=== PATIENT | female | born 1980 | race Caucasian/White ===

== ENCOUNTER 2019-05-26 02:15 | Inpatient (IN) | payer OTHER ==
[2019-05-26] MEDS ORDERED: MAGNESIUM 4GM/H20 - 4 GM/100 ML IVPB IVPB ONE (02:56)
[2019-05-26] MEDS ORDERED: LABETALOL HCL 5 MG/1 ML (100MG/20 ML VIAL) ONE ×2 (02:56→02:57)
[2019-05-26] MEDS ORDERED: MAGNESIUM SULFATE 20GM/500ML - 20 GM/500 ML INFUS.BAG ONE ×2 (02:56→18:09)
[2019-05-26] MEDS ORDERED: LABETALOL HCL 5 MG/1 ML (100MG/20 ML VIAL) IVPB ONE (03:30)
[2019-05-26 03:35] LABS: RETICULOCYTES 2.44 % (0.5-1.5)
[2019-05-26 03:37] LABS: BASO % 0.3 % (0-2.0); EOS % 0.3 % (0-4.5); HEMATOCRIT 31.7 % (32.4-45.2); HEMOGLOBIN 10.4 GM/dL (10.7-15.3); LYMPH % 23.5 % (8-40); MCH 28.3 pg (25.7-33.7); MCHC 32.9 g/dl (32.0-36.0); MEAN CELL VOLUME 85.9 fl (80-96); MEAN PLT VOLUME 10.3 fl (7.5-11.1); MONO % 5.8 % (3.8-10.2); NEUT % 70.1 % (42.8-82.8); PLATELET COUNT 267 K/MM3 (134-434); RBC 3.69 M/mm3 (3.60-5.2); RDW 15.1 % (11.6-15.6); WHITE BLOOD COUNT 11.5 K/mm3 (4.0-10.0)
[2019-05-26] MEDS ORDERED: NIFEdipine 10 MG CAPSULE (FP) PO ONE (03:40)
[2019-05-26] MEDS ORDERED: NIFEdipine 10 MG CAPSULE (FP) ONE (03:41)
[2019-05-26 03:55] LABS: INR 0.87 (0.83-1.09); PROTHROMBIN TIME (PATIENT) 10.2 SEC (9.7-13.0)
[2019-05-26 03:57] LABS: ACTIVATED PTT 22.6 SECONDS (25.2-36.5)
[2019-05-26 04:03] LABS: BLOOD UREA NITROGEN 9.3 mg/dL (7-18); CALCIUM 8.4 mg/dL (8.5-10.1); CREATININE 0.6 mg/dL (0.55-1.3); POTASSIUM 4.2 mmol/L (3.5-5.1); URIC ACID 5.7 mg/dL (2.6-7.2)
[2019-05-26 04:09] VITALS: BMI 41.8
[2019-05-26] MEDS ORDERED: PROPOFOL 20 ML ONE (04:10)
[2019-05-26] MEDS ORDERED: morphine SULFATE/PF 0.5 MG/ML (2cc Syringe - QUVA) ONE (04:10)
[2019-05-26] MEDS ORDERED: SUCCINYLCHOLINE CHLORIDE 200 MG/10 ML SYRINGE ONE (04:10)
--- NOTE | 2019-05-26 04:14 | HP ---
Past Medical History - Primary Care Physician PCP:: Aren Vega - Admission Chief Complaint: 38 weeks, severe PIH, ROM, meconium , AMA History Source: Patient Limitations to Obtaining History: No Limitations - Past Medical History ...: 3 ...Para: 2 Heme/Onc: Yes: Anemia - Past Surgical History Hx Myomectomy: No Hx Transabdominal Cerclage: No - Smoking History Have you smoked in the past 12 months: No - Alcohol/Substance Use Hx Alcohol Use: No - Social History Usual Living Arrangement: Yes: With Significant Other History of Recent Travel: No Review of Systems - Review of Systems Constitutional: reports: No Symptoms Eyes: reports: No Symptoms HENT: reports: No Symptoms Neck: reports: No Symptoms Cardiovascular: reports: No Symptoms Gastrointestinal: reports: Abdominal Pain Genitourinary: reports: No Symptoms Breasts: reports: No Symptoms Reported Musculoskeletal: reports: Back Pain Integumentary: reports: No Symptoms Neurological: reports: No Symptoms Endocrine: reports: No Symptoms Hematology/Lymphatic: reports: No Symptoms Psychiatric: reports: No Symptoms Physical Exam - Maternity Constitutional: Yes: Obese Eyes: Yes: WNL HENT: Yes: WNL Neck: Yes: WNL Cardiovascular: Yes: WNL, Regular Rate and Rhythm Lungs: Clear to auscultation Breast(s): Yes: WNL - Abdominal Exam/OB Fundal Height: 38 Number of Fetuses: Single Presentation: Vertex Contractions: Yes Regularity: Irregular Intensity: Moderate Monitor Mode: External Heart Rate (range): 150 Heart Rate Location: [facility] Category: II Accelerations: Non-Uniform Decelerations: Variable - Vaginal Exam/OB Vaginal Bleediing: No Speculum Exam: No Dilatation (cm): 2 cm Effacement (%): 50 Amniotic Membrane Status: Ruptured Nitrazine Test: Positive Amniotic Fluid: Yes: Meconium Stained Meconium: Moderate Presentation: Vertex/Position Station: -3 - Physical Exam Musculoskeletal: Yes: Back Pain Extremities: Yes: WNL Edema: LLE: 2+, RLE: 2+ Integumentary: Yes: WNL Deep Tendon Reflex Grade: Normal but brisk +3 ...Motor Strength: WNL Psychiatric: Yes: WNL - Labs Lab Results: CBC, BMP 05/26/19 03:05 05/26/19 03:05 Hemorrhage Risk Assessment - Risk Factors Medium Risk Factors: Yes: Obesity (BMI >40) Risk Score: 1 Risk Level: Medium Risk Problem List - Problems (1) with 38 completed weeks gestation Code(s): Z3A.38 - 38 WEEKS GESTATION OF (2) induced hypertension, antepartum Code(s): O13.9 - GESTATIONAL HTN W/O SIGNIFICANT PROTEINURIA, UNSP TRIMESTER (3) Meconium in amniotic fluid Code(s): P96.83 - MECONIUM STAINING (4) Advanced maternal age (AMA) in Code(s): CPP2887 - (5) Obesity Code(s): E66.9 - OBESITY, UNSPECIFIED Qualifiers: Obesity type: due to excess calories Assessment/Plan admit BP monitoring q 15 min MGso4 labeatalol iv follow by Procardia 30 mg po iv hydraation theodore monitor I/o c/s after bp stable, risks of c/s and ulternatives explained
[2019-05-26] MEDS ORDERED: ELECTROLYTE-148 SOLN 1,000 ML IV SCH (04:15)
[2019-05-26] MEDS ORDERED: DEXTROSE 5%-LACTATED RINGERS 1,000 ML IV SCH ×2 (04:15→05:45)
[2019-05-26] MEDS ORDERED: OXYTOCIN 20 UNITS in 0.9% NS 20 UNIT/1,000 ML INFUS.BAG IV ONE ×3 (04:15→20:47)
[2019-05-26 04:35] LABS: MAGNESIUM 1.7 mg/dL (1.8-2.4)
--- NOTE | 2019-05-26 05:17 | PN ---
Progress Note (short form) - Note Progress Note: Called to attended C/S for this 38yrs old mother who presented to Dr with ROM/ MSAF & Elevated BPs- PIH Mom received- Labetalol/ Nifidipine Maternal Labs - NA Infant delivered- MSAF- cried soon after, suctioned/ dried Cord3V, 9/9 Infant'S PE: Infant clinically active/ alert with good color & Perfusion. Normocephalic- AFOF B?L good air entry, S1-S2 ml, no murmur abd soft, - nl; female Ext FROM Good tone and activity. RNBC Watch for resp distress Encourage BF/ Bonding F/U Maternal Labs.
[2019-05-26 05:30] LABS: EPI CELLS 11.6 /HPF (0-5/HPF); HYALINE CASTS 47 /lpf (0-8); URINE APPEARANCE CLEAR; URINE BACTERIA 24.9 /hpf (NEGATIVE); URINE BILIRUBIN NEGATIVE (NEGATIVE); URINE COLOR YELLOW; URINE GLUCOSE (UA) NEGATIVE (NEGATIVE); URINE KETONE NEGATIVE (NEGATIVE); URINE LEUK ESTERASE NEGATIVE (NEGATIVE); URINE NITRITE NEGATIVE (NEGATIVE); URINE PROTEIN 3+ (NEGATIVE); URINE RBC 3 /hpf (0-4); URINE UROBILINOGEN 0.2 mg/dL (0.2-1.0); URINE WBC 3 /hpf (0-5)
[2019-05-26] MEDS ORDERED: BENZOCAINE 20% 57 GM BOTTLE TP PRN (05:35)
[2019-05-26] MEDS ORDERED: diphenhydrAMINE HCL 25 MG CAPSULE (FP) PO PRN (05:35)
[2019-05-26] MEDS ORDERED: METHYLERGONOVINE MALEATE 0.2 MG/1 ML AMP IM PRN (05:35)
[2019-05-26] MEDS ORDERED: oxyCODONE HCL 5 MG TABLET PO PRN (05:35)
[2019-05-26] MEDS ORDERED: IBUPROFEN 600 MG TABLET (FP) PO PRN (05:35)
[2019-05-26] MEDS ORDERED: IBUPROFEN 800 MG/8 ML IJ IVPB PRN (05:35)
[2019-05-26] MEDS ORDERED: BENZOCAINE 28 GM HEMORRHOIDAL OINTMENT PR PRN (05:35)
[2019-05-26] MEDS ORDERED: WITCH HAZEL 50% (TUCKS) 40 PAD/JAR PAD TP PRN (05:35)
[2019-05-26 05:44] LABS: COCAINE, UR NEGATIVE ng/ml (CUTOFF=300); METHADONE, UR NEGATIVE ng/ml (CUTOFF=300); OPIATES, URI NEGATIVE ng/ml (CUTOFF=300); PHENCYCLIDINE,URINE NEGATIVE ng/ml (CUTOFF=25); URINE AMPHETAMINES NEGATIVE ng/ml (CUTOFF=500); URINE BARBITURATES NEGATIVE ng/ml (CUTOFF=200); URINE BENZODIAZEPINES NEGATIVE ng/ml (CUTOFF=200)
[2019-05-26] MEDS: OXYTOCIN 20 UNITS in 0.9% NS 20 UNIT/1,000 ML INFUS.BAG IV SCH ×2 (05:45→11:23)
--- NOTE | 2019-05-26 05:47 | OP ---
Operative Note - Note: Operative Date: 05/26/19 Pre-Operative Diagnosis: 38 weeks, severe PIH , rom, meconium AF Operation: primaary LST c/s Findings: live baby girl , ROT, cord around neck once , mec AF , 12/14 Surgeon: Aren Vega Air Conditioning Mechanic: German Osman Anesthesiologist/DIPLOMA DENTAL ASSISTANT: Cesar Johnson Anesthesia: Spinal Estimated Blood Loss (mls): 500 Drains & Tubes with Location: theodore Drains, Volume Out (mls): 100 Blood Volume Replaced (mls): 0 Fluid Volume Replaced (mls): 1,500 Operative Report Dictated: Yes
[2019-05-26] MEDS: MAGNESIUM SULFATE 20GM/500ML - 20 GM/500 ML INFUS.BAG IV SCH ×3 (06:45→09:40)
[2019-05-26] MEDS ORDERED: ONDANSETRON 4 MG/2 ML VIAL ONE ×2 (07:27→13:15)
[2019-05-26] MEDS: ONDANSETRON 4 MG/2 ML VIAL IVPUSH PRN ×2 (07:34→13:20)
--- NOTE | 2019-05-26 08:58 | PN ---
Progress Note (short form) - Note Progress Note: 38F h/o severe pre-eclampsia on Mag POD#0 under spinal anesthesia with duramorph. Pt. seen and examined at bedside this am. Currently complaining of persistent, non productive cough with no associated fever. Pt. noted to have O2 sat of 90-95% on room air. Gen: AO*3, residual LE motor/sensory block from spinal, good strength in UE. CV: RRR Resp: Decreased inspiratory effort but otherwise clear to auscultation Abd: s/p with clean dressing in place. Etiology of hypoxia likely multifactorial: splinting secondary to pain from surgery, atelectasis, persistent URI with possible pneumonia and sedation from duramorph spinal. I would recommend that Ms Solis receive supplemental O2 via NC to maintain sat > 92% if needed and monitor continuous pulse oximetery. We will check a CXR to rule out pneumonia. If her oxygenation worsens please reconsult anesthesia.
[2019-05-26] MEDS: ACETAMINOPHEN 1000 MG/100 ML VIAL (NON FORMULARY) IVPB SCH ×3 (09:05→22:00)
[2019-05-26] MEDS ORDERED: ACETAMINOPHEN INJECTION 100 ML IVPB ONE ×3 (09:06→22:42)
[2019-05-26] MEDS ORDERED: LABETALOL HCL 200 MG TABLET (FP) ONE ×3 (09:38→22:42)
[2019-05-26] MEDS: LABETALOL HCL 200 MG TABLET (FP) PO SCH ×3 (09:40→22:00)
--- NOTE | 2019-05-26 09:55 | CONSULT ---
Consult Consult Specialty:: Nephrology ( Chaim/ Shiva) Reason for Consultation:: PreEcclampsia, markedly elevated BP - History of Present Illness Chief Complaint: This is a 38 y/o female admitted with profoundly elevated BP at 38 weeks of gestation. History of Present Illness: The patient has two previous pregnancies that were normal, but for the second , she has elevated BP. She is also reporting that she has an intractable cough for the past 6 months, that were treated by antibiotics by her PCP, but with no significant relief. 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: Migraine, Seizure, Syncope, Vertigo Pulmonary: Yes: Other (cough for the past >6 months) Gastrointestinal: No: Constipation Renal/: No: Hematuria, UTI Heme/Onc: No: Bleeding Disorder Psych: No: Addictions, Depression, Panic Rheumatology: No: Lupus, Rheumatoid Arthritis, Vasculitis - Alcohol/Substance Use Hx Alcohol Use: No - Smoking History Smoking history: Never smoked Have you smoked in the past 12 months: No - Social History History of Recent Travel: No Home Medications - Allergies Allergies/Adverse Reactions: Allergies Allergy/AdvReac Type Severity Reaction Status Date / Time No Known Allergies Allergy Verified 05/26/19 04:13 - Home Medications Home Medications: Ambulatory Orders Vitamins (Sjr) - 1 tab PO DAILY 05/26/19 Family Medical History Family History: Denies Review of Systems - Review of Systems Eyes: reports: No Symptoms. denies: Blind Spots, Double Vision HENT: denies: Difficult Swallowing Neck: reports: No Symptoms Cardiovascular: denies: Chest Pain, Shortness of Breath Respiratory: reports: Cough. denies: Wheezing Genitourinary: denies: Burning Neurological: reports: No Symptoms. denies: Confusion, Dizziness, Headache Psychiatric: reports: No Symptoms. denies: Anxiety, Depression Physical Exam Vital Signs: Vital Signs Temperature 97.9 F 05/26/19 06:00 Pulse Rate 96 H 05/26/19 09:00 Respiratory Rate 05/26/19 09:00 Blood Pressure 158/95 05/26/19 09:00 O2 Sat by Pulse Oximetry (%) 94 L 05/26/19 09:00 Constitutional: Yes: Well Nourished, Anxious Eyes: Yes: Conjunctiva Clear HENT: Yes: Normocephalic Neck: Yes: Trachea Midline Cardiovascular: Yes: Regular Rate and Rhythm, S1, S2 Respiratory: Yes: CTA Bilaterally, Diminished, Poor Air Entry. No: Rales, Rhonchi Gastrointestinal: Yes: Normal Bowel Sounds Renal/: No: Bladder Distention, CVA Tenderness - Left, CVA Tenderness - Right Musculoskeletal: Yes: Back Pain Edema: Yes Edema: LLE: Trace, RLE: Trace Neurological: Yes: Alert, Oriented Psychiatric: Yes: Alert, Oriented Labs: CBC, BMP 05/26/19 03:05 05/26/19 03:05 Problem List - Problems (1) Chronic cough Code(s): R05 - COUGH (2) Obesity Code(s): E66.9 - OBESITY, UNSPECIFIED Qualifiers: Obesity type: due to excess calories (3) induced hypertension, antepartum Code(s): O13.9 - GESTATIONAL HTN W/O SIGNIFICANT PROTEINURIA, UNSP TRIMESTER Assessment/Plan 38 y/o female with amrkedly elevated Blood pressure on admission at 38 weeks of gestation. The patient underwent LSCS under spinal anesthesia. She is getting Mg infusion at this point. She has also been started on Labetalol. The patient continues to have nausea. If the patient keeps vomiting, may need to switch to parenteral Labetalol. Should consider Pulmonary evaluation in view of the persistent cough. Thank you. Samina Rucker MD
[2019-05-26] MEDS ORDERED: CEFAZOLIN 1 GM/D5W 1 GM/50 ML BAG ONE ×2 (10:04→18:18)
[2019-05-26] MEDS: CEFAZOLIN 1 GM/D5W 1 GM/50 ML BAG IVPB SCH ×2 (10:08→18:21)
[2019-05-26] MEDS ORDERED: LABETALOL HCL 200 MG TABLET (FP) PO SCH (12:00)
[2019-05-26 12:43] LABS: BASO % 0.2 % (0-2.0); HEMATOCRIT 24.9 % (32.4-45.2); HEMOGLOBIN 8.1 GM/dL (10.7-15.3); LYMPH % 9.2 % (8-40); MCHC 32.5 g/dl (32.0-36.0); MEAN CELL VOLUME 86.2 fl (80-96); MEAN PLT VOLUME 9.5 fl (7.5-11.1); MONO % 4.6 % (3.8-10.2); PLATELET COUNT 193 K/MM3 (134-434); RBC 2.89 M/mm3 (3.60-5.2); RDW 14.6 % (11.6-15.6); WHITE BLOOD COUNT 13.9 K/mm3 (4.0-10.0)
--- NOTE | 2019-05-26 12:55 | OP ---
DATE OF OPERATION: 05/26/2019 PREOPERATIVE DIAGNOSIS: , 38 weeks, ruptured membrane, meconium amniotic fluid, severe -induced hypertension, and advanced maternal age and obesity. POSTOPERATIVE DIAGNOSIS: , 38 weeks, ruptured membrane, meconium amniotic fluid, severe -induced hypertension, and advanced maternal age and obesity. PROCEDURE: Primary low segment transverse section. SURGEON: Laura Cruz MD WOODEN SHADE HARDWARE INSTALLER: LAMONTE Polanco ANESTHESIA: Spinal. ANESTHESIOLOGIST: Kandis Johnson MD ESTIMATED BLOOD LOSS: 500 mL. FINDINGS: A live baby girl; 9, 9; ROT position with cord around the neck x1. Meconium amniotic fluid. OPERATIVE DICTATION: The patient was taken to the operating room, had adequate spinal anesthesia. Abdomen and perineum were prepped and draped. Pfannenstiel abdominal skin incision was made. Abdominal wall was cut layer by layer until peritoneum was exposed and incised. Upon entering the abdominal cavity, lower uterine segment was identified. Two moist lap pads were placed in the right and left gutters, and then bladder flap was developed with Metzenbaum scissors. Bladder was pushed down. A low transverse uterine incision was made. Incision extended into the amniotic sac. Meconium amniotic fluid was noted. Uterine incision was extended laterally with bandage scissors. Head delivered, nasopharynx was suctioned. Cord around the neck x1 reduced, and the anterior and posterior shoulder delivered without any difficulty. Live baby girl was delivered; Apgars 9, 9. Placenta was delivered manually. Uterine cavity was cleaned of all remaining tissue. Uterine incision was closed in 2 layers, first layer with 0 Biosyn continuous suture, the second layer with 0 Biosyn imbricating the first layer. Bladder flap was closed with 0 Biosyn continuous suture. Both tubes and ovaries were checked, were normal. No active bleeding was seen. Pelvic cavity irrigated and no bleeding was seen. Then peritoneum was closed with 0 Biosyn continuous suture. Muscles were brought together with interrupted suture of 0 Biosyn. Fascia was closed with 0 Biosyn continuous suture, subcutaneous fat interrupted suture of 0 Biosyn, and the skin was closed with jeff. All the lap pad, sponge, and instrument counts were correct x2. Patient tolerated the procedure well, left the OR in good condition. Urine output was 50 mL. IV fluid was 1500 mL infusion. LAURA CRUZ M.D. /[id number]
--- NOTE | 2019-05-26 13:05 | CON.PULM ---
Consult Consult Specialty:: PULMONARY Referred by:: Dr Vega Reason for Consultation:: cough - History of Present Illness Chief Complaint: History of Present Illness: 38yo female who was admitted with rupture of membranes, 38 weeks , induced hypertension now s/p . Pulmonary consulted for persistent cough that started in November. She was 3 weeks at the time. Cough is nonproductive, denies fevers, chills or sweats. Had been prescribed 2 courses of antibiotics during her . Cough occurs, day/night, does wake her up occasionally. Also reports some wheezing at night. States she has been experiencing reflux symptoms worsening as the progressed. Taking TUMS and mucinex without relief. 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: Migraine, Seizure, Syncope, Vertigo Pulmonary: Yes: Other (cough for the past >6 months) Gastrointestinal: No: Constipation Renal/: No: Hematuria, UTI Psych: No: Addictions, Depression, Panic Rheumatology: No: Lupus, Rheumatoid Arthritis, Vasculitis - Alcohol/Substance Use Hx Alcohol Use: No - Smoking History Smoking history: Never smoked Have you smoked in the past 12 months: No - Social History History of Recent Travel: No Home Medications - Allergies Allergies/Adverse Reactions: Allergies Allergy/AdvReac Type Severity Reaction Status Date / Time No Known Allergies Allergy Verified 05/26/19 04:13 - Home Medications Home Medications: Ambulatory Orders Vitamins (Sjr) - 1 tab PO DAILY 05/26/19 Review of Systems - Review of Systems Constitutional: denies: Chills, Fever Eyes: denies: Recent Change in Vision HENT: denies: Nasal Congestion, Throat Pain Neck: denies: Stiffness, Tenderness Cardiovascular: denies: Chest Pain, Shortness of Breath Respiratory: reports: Cough, Wheezing. denies: Hemoptysis Gastrointestinal: denies: Abdominal Pain, Nausea, Vomiting Genitourinary: denies: Dysuria, Hematuria Neurological: denies: Headache Endocrine: denies: Unexplained Weight Loss Physical Exam Vital Sings: Vital Signs Temperature 97.9 F 05/26/19 10:03 Pulse Rate 93 H 05/26/19 12:00 Respiratory Rate 18 05/26/19 12:00 Blood Pressure 156/100 05/26/19 12:00 O2 Sat by Pulse Oximetry (%) 95 05/26/19 10:03 Constitutional: Yes: Calm Eyes: Yes: Conjunctiva Clear, EOM Intact HENT: Yes: Nasal Congestion Neck: Yes: Supple, Trachea Midline Cardiovascular: Yes: Regular Rate and Rhythm Respiratory: Yes: Diminished (decreased breath sounds at the bases) ...Clubbing: No Gastrointestinal: Yes: Normal Bowel Sounds, Soft Edema: No Labs: CBC, BMP 05/26/19 12:30 Imaging - Results Chest X-ray: Report Reviewed, Image Reviewed (mild pulmonary vascular congestion ) Problem List - Problems (1) induced hypertension, antepartum Code(s): O13.9 - GESTATIONAL HTN W/O SIGNIFICANT PROTEINURIA, UNSP TRIMESTER (2) with 38 completed weeks gestation Code(s): Z3A.38 - 38 WEEKS GESTATION OF Assessment/Plan 38 weeks s/p POD #0 Induced Hypertension Anemia Cough - cough likely multifactorial, may be from atelectasis from diaphragmatic elevation vs post nasal gtt vs reflux - can trial incentive spirometry, inhaled bronchodilators and H2 blockers - can get outpt PFTs to r/o underlying asthma - DVT prophylaxis Thank you for this consult Byo Simon MD
[2019-05-26 13:07] LABS: BILIRUBIN,TOTAL 0.1 mg/dL (0.2-1); BLOOD UREA NITROGEN 6.2 mg/dL (7-18); CREATININE 0.5 mg/dL (0.55-1.3); POTASSIUM 3.8 mmol/L (3.5-5.1)
[2019-05-26 13:15] LABS: CALCIUM 6.7 mg/dL (8.5-10.1)
[2019-05-26] MEDS: FLUTICASONE PROP 0.05% 16 GM NASAL SPRAY NS SCH ×2 (15:14→22:00)
[2019-05-26] MEDS: FAMOTIDINE 20 MG/50 ML IVPB 20 MG/50 ML MG IVPB SCH ×2 (15:15→22:00)
[2019-05-26] MEDS: ALBUTEROL SO4 0.042% IH SOL 1.25 MG/3 ML VIAL.NEB NEB SCH ×2 (15:20→20:45)
[2019-05-26] MEDS: NIFEdipine E.R. 30 MG TABLET PO SCH (16:30)
[2019-05-27] MEDS ORDERED: diphenhydrAMINE HCL 25 MG CAPSULE (FP) PO ONE (02:35)
[2019-05-27] MEDS ORDERED: MAGNESIUM SULFATE 20GM/500ML - 20 GM/500 ML INFUS.BAG ONE (02:38)
[2019-05-27] MEDS: MAGNESIUM SULFATE 20GM/500ML - 20 GM/500 ML INFUS.BAG IV SCH (03:00)
[2019-05-27] MEDS: ACETAMINOPHEN 1000 MG/100 ML VIAL (NON FORMULARY) IVPB SCH (04:10)
[2019-05-27] MEDS ORDERED: ACETAMINOPHEN INJECTION 100 ML IVPB ONE (04:31)
[2019-05-27] MEDS ORDERED: OXYTOCIN 20 UNITS in 0.9% NS 20 UNIT/1,000 ML INFUS.BAG IV ONE (04:47)
[2019-05-27] MEDS ORDERED: OXYTOCIN 20 UNITS in 0.9% NS 20 UNIT/1,000 ML INFUS.BAG IV SCH (05:15)
[2019-05-27] MEDS: LABETALOL HCL 200 MG TABLET (FP) PO SCH ×3 (06:00→21:37)
[2019-05-27] MEDS ORDERED: LABETALOL HCL 200 MG TABLET (FP) ONE (06:08)
[2019-05-27 07:09] LABS: ALBUMIN 1.6 g/dl (3.4-5.0); ALK PHOS 116 U/L (45-117); ANION GAP 7 MMOL/L (8-16); BILIRUBIN,TOTAL 0.1 mg/dL (0.2-1); BLOOD UREA NITROGEN 4.5 mg/dL (7-18); CHLORIDE 114 mmol/L (98-107); CO2 18 mmol/L (21-32); CREATININE 0.3 mg/dL (0.55-1.3); GLUCOSE,RANDOM 70 mg/dL (74-106); POTASSIUM 3.3 mmol/L (3.5-5.1); SGOT/AST 15 U/L (15-37); SGPT/ALT < 6 U/L (13-61); SODIUM 139 mmol/L (136-145); TOT PROT 4.2 g/dl (6.4-8.2)
[2019-05-27 07:10] LABS: BASO % 0.3 % (0-2.0); EOS % 0.4 % (0-4.5); HEMATOCRIT 21.9 % (32.4-45.2); HEMOGLOBIN 7.2 GM/dL (10.7-15.3); LYMPH % 14.7 % (8-40); MCH 28.3 pg (25.7-33.7); MEAN CELL VOLUME 85.7 fl (80-96); MEAN PLT VOLUME 9.6 fl (7.5-11.1); MONO % 4.1 % (3.8-10.2); NEUT % 80.5 % (42.8-82.8); PLATELET COUNT 182 K/MM3 (134-434); RBC 2.56 M/mm3 (3.60-5.2); RDW 14.7 % (11.6-15.6); WHITE BLOOD COUNT 11.1 K/mm3 (4.0-10.0)
--- NOTE | 2019-05-27 07:17 | PN ---
Progress Note (short form) - Note Progress Note: pod 1, s/p c/s , PIH, no headache, no blurred vision . cough better, no dizziness CBC, BMP 05/27/19 06:30 Last Vital Signs Temp Pulse Resp BP Pulse Ox 98.3 F 88 18 123/86 91 L 05/27/19 07:00 05/27/19 05:00 05/27/19 05:00 05/27/19 05:00 05/26/19 21:40 abdomen soft , non distension, no vva incision dry, clean , no discharge lochia mild no calf tenderness DTR normal 1+ edema pod 1 , PIH BP stable, asymptomatic plan d/c MG++ , cont , anti HTN med monitor BP ambulate advance diet Problem List - Problems (1) with 38 completed weeks gestation Code(s): Z3A.38 - 38 WEEKS GESTATION OF (2) induced hypertension, antepartum Code(s): O13.9 - GESTATIONAL HTN W/O SIGNIFICANT PROTEINURIA, UNSP TRIMESTER (3) Meconium in amniotic fluid Code(s): P96.83 - MECONIUM STAINING (4) Advanced maternal age (AMA) in Code(s): [id number] - (5) Obesity Code(s): E66.9 - OBESITY, UNSPECIFIED Qualifiers: Obesity type: due to excess calories
[2019-05-27] MEDS ORDERED: POTASSIUM CHLORIDE TABS 20 MEQ TABLET.ER (FP) PO ONE (07:30)
[2019-05-27 07:35] LABS: CALCIUM 5.2 mg/dL (8.5-10.1)
[2019-05-27] MEDS ORDERED: oxyCODONE HCL 5 MG TABLET ONE (07:39)
[2019-05-27] MEDS: oxyCODONE HCL 5 MG TABLET PO PRN (07:42)
[2019-05-27] MEDS: ALBUTEROL SO4 0.042% IH SOL 1.25 MG/3 ML VIAL.NEB NEB SCH ×3 (07:45→20:31)
[2019-05-27] MEDS ORDERED: CALCIUM (OYSTER SHELL) 500 MG TABLET (FP) PO SCH (10:00)
[2019-05-27] MEDS: FLUTICASONE PROP 0.05% 16 GM NASAL SPRAY NS SCH ×2 (10:00→21:38)
[2019-05-27] MEDS: ENOXAPARIN NA (PORCINE) 40 MG/0.4 ML DISP.SYRIN SQ SCH (10:47)
[2019-05-27] MEDS: FAMOTIDINE 20 MG TABLET PO SCH ×2 (11:44→21:37)
[2019-05-27] MEDS: NIFEdipine E.R. 30 MG TABLET PO SCH (11:44)
--- NOTE | 2019-05-27 13:03 | PN ---
Progress Note (short form) - Note Progress Note: PULMONARY States cough better after pepcid. Some wheezing overnight. Vital Signs Period Temp Pulse Resp BP Sys/Reich Pulse Ox Last 24 Hr 97.5 F-98.6 F 78-109 17-20 107-168/72-109 91-98 Gen: NAD at rest Heart: RRR Lung: clear to auscultation Abd: soft, nontender Ext: no edema CBC, BMP 05/27/19 06:30 05/27/19 06:30 Active Medications Acetaminophen (Tylenol -) 650 mg PO Q4H PRN PRN Reason: FEVER/PAIN Albuterol Sulfate (Ventolin 0.042trength) -) 1 amp NEB RTID [facility] Last Admin: 05/27/19 07:45 Dose: 1 amp Benzocaine (Americaine 20% [place] -) 1 spray TP PRN PRN PRN Reason: Pain - Topical Benzocaine (Americaine Ointment -) 1 applic [place] PRN PRN PRN Reason: Pain - Topical Bisacodyl (Dulcolax Suppository -) 10 mg MA PRN PRN PRN Reason: CONSTIPATION Calcium Carbonate (Os-Efrain 500mg -) 1,000 mg PO DAILY [facility] Last Admin: 05/27/19 10:54 Dose: 1,000 mg Diphenhydramine HCl (Benadryl -) 25 mg PO Q8H PRN PRN Reason: FOR ITCHING Last Admin: 05/27/19 02:30 Dose: 25 mg Enoxaparin Sodium (Lovenox -) 40 mg SQ DAILY [facility] Last Admin: 05/27/19 10:47 Dose: 40 mg Famotidine (Pepcid -) 20 mg PO BID [facility] Last Admin: 05/27/19 11:44 Dose: 20 mg Fluticasone Propionate (Flonase -) 2 spray NS BID [facility] Last Admin: 05/27/19 10:00 Dose: 2 spray Labetalol HCl (Normodyne -) 200 mg PO TID [facility] Last Admin: 05/27/19 06:00 Dose: 200 mg Methylergonovine Maleate (Methergine Injection -) 0.2 mg IM Q4H PRN PRN Reason: EXCESSIVE BLEEDING Nifedipine (Procardia Xl -) 30 mg PO DAILY [facility] Last Admin: 05/27/19 11:44 Dose: 30 mg Ondansetron HCl (Zofran Injection) 4 mg IVPUSH Q6H PRN PRN Reason: NAUSEA AND/OR VOMITING Last Admin: 05/26/19 13:20 Dose: 4 mg Oxycodone HCl (Roxicodone -) 5 mg PO Q4H PRN PRN Reason: PAIN LEVEL 4 - 6 Oxycodone HCl (Roxicodone -) 10 mg PO Q4H PRN PRN Reason: PAIN LEVEL 7 - 10 Last Admin: 05/27/19 07:42 Dose: 10 mg Senna/Docusate Sodium (Pericolace -) 2 tablet PO HS PRN PRN Reason: CONSTIPATION Simethicone (Mylicon -) 80 mg PO Q4H PRN PRN Reason: GAS Witch Mary/Glycerin (Tucks Pads -) 1 pad TP PRN PRN PRN Reason: Pain - Topical A/P s/p POD #1 Induced Hypertension Anemia Cough - cough likely multifactorial, may be from atelectasis from diaphragmatic elevation vs post nasal gtt vs reflux - incentive spirometry, nasal steroids, inhaled bronchodilators and H2 blockers - outpt PFTs to r/o underlying asthma - DVT prophylaxis Problem List - Problems (1) induced hypertension, antepartum Code(s): O13.9 - GESTATIONAL HTN W/O SIGNIFICANT PROTEINURIA, UNSP TRIMESTER (2) with 38 completed weeks gestation Code(s): Z3A.38 - 38 WEEKS GESTATION OF
--- NOTE | 2019-05-27 14:42 | PN ---
Progress Note, Physician History of Present Illness: Pt seen and examined at bedside. She is awake and alert. She says that she feels better today. She feels that her lower ext edema is improved. - Current Medication List Current Medications: Active Medications Acetaminophen (Tylenol -) 650 mg PO Q4H PRN PRN Reason: FEVER/PAIN Albuterol Sulfate (Ventolin 0.042trength) -) 1 amp NEB RTID [facility] Last Admin: 05/27/19 07:45 Dose: 1 amp Benzocaine (Americaine 20% [place] -) 1 spray TP PRN PRN PRN Reason: Pain - Topical Benzocaine (Americaine Ointment -) 1 applic [place] PRN PRN PRN Reason: Pain - Topical Bisacodyl (Dulcolax Suppository -) 10 mg [place] PRN PRN PRN Reason: CONSTIPATION Calcium Carbonate (Os-Efrain 500mg -) 1,000 mg PO DAILY [facility] Last Admin: 05/27/19 10:54 Dose: 1,000 mg Diphenhydramine HCl (Benadryl -) 25 mg PO Q8H PRN PRN Reason: FOR ITCHING Last Admin: 05/27/19 02:30 Dose: 25 mg Enoxaparin Sodium (Lovenox -) 40 mg SQ DAILY [facility] Last Admin: 05/27/19 10:47 Dose: 40 mg Famotidine (Pepcid -) 20 mg PO BID [facility] Last Admin: 05/27/19 11:44 Dose: 20 mg Fluticasone Propionate (Flonase -) 2 spray NS BID [facility] Last Admin: 05/27/19 10:00 Dose: 2 spray Labetalol HCl (Normodyne -) 200 mg PO TID [facility] Last Admin: 05/27/19 13:58 Dose: 200 mg Methylergonovine Maleate (Methergine Injection -) 0.2 mg IM Q4H PRN PRN Reason: EXCESSIVE BLEEDING Nifedipine (Procardia Xl -) 30 mg PO DAILY [facility] Last Admin: 05/27/19 11:44 Dose: 30 mg Ondansetron HCl (Zofran Injection) 4 mg IVPUSH Q6H PRN PRN Reason: NAUSEA AND/OR VOMITING Last Admin: 05/26/19 13:20 Dose: 4 mg Oxycodone HCl (Roxicodone -) 5 mg PO Q4H PRN PRN Reason: PAIN LEVEL 4 - 6 Oxycodone HCl (Roxicodone -) 10 mg PO Q4H PRN PRN Reason: PAIN LEVEL 7 - 10 Last Admin: 05/27/19 07:42 Dose: 10 mg Senna/Docusate Sodium (Pericolace -) 2 tablet PO HS PRN PRN Reason: CONSTIPATION Simethicone (Mylicon -) 80 mg PO Q4H PRN PRN Reason: GAS Witch Mary/Glycerin (Tucks Pads -) 1 pad TP PRN PRN PRN Reason: Pain - Topical - Objective Vital Signs: Vital Signs Temperature 98.2 F 05/27/19 10:16 Pulse Rate 103 H 05/27/19 10:16 Respiratory Rate 05/27/19 10:16 Blood Pressure 160/78 05/27/19 10:16 O2 Sat by Pulse Oximetry (%) 93 L 05/27/19 08:00 Constitutional: Yes: Calm Eyes: Yes: Conjunctiva Clear HENT: Yes: Atraumatic Neck: Yes: Supple Cardiovascular: Yes: S1, S2 Respiratory: Yes: CTA Bilaterally Gastrointestinal: Yes: Soft Musculoskeletal: Yes: WNL Edema: LLE: Trace, RLE: Trace Neurological: Yes: Oriented Psychiatric: Yes: Oriented Labs: CBC, BMP 05/27/19 06:30 05/27/19 06:30 INR, PTT INR 0.87 (0.83-1.09) 05/26/19 03:05 Assessment/Plan Current Medications Generic Name Dose Route Start Last Admin Trade Name Freq PRN Reason Stop Dose Admin Acetaminophen 650 mg 05/26/19 08:34 Tylenol - PO Q4H PRN FEVER/PAIN Albuterol Sulfate 1 amp 05/26/19 14:00 05/27/19 07:45 Ventolin 0.042trength) - NEB 1 amp RTID RAJESH Administration Benzocaine 1 spray 05/26/19 05:35 Americaine 20% [place] - TP PRN PRN Pain - Topical Benzocaine 1 applic 05/26/19 05:35 Americaine Ointment - [place] PRN PRN Pain - Topical Bisacodyl 10 mg 05/27/19 05:35 Dulcolax Suppository - [place] PRN PRN CONSTIPATION Calcium Carbonate 1,000 mg 05/27/19 10:00 05/27/19 10:54 Os-Efrain 500mg - PO 1,000 mg DAILY [facility] Administration Diphenhydramine HCl 25 mg 05/26/19 05:35 05/27/19 02:30 Benadryl - PO 25 mg Q8H PRN Administration FOR ITCHING Enoxaparin Sodium 40 mg 05/27/19 10:00 05/27/19 10:47 Lovenox - SQ 40 mg DAILY [facility] Administration Famotidine 20 mg 05/27/19 11:30 05/27/19 11:44 Pepcid - PO 20 mg BID [facility] Administration Fluticasone Propionate 2 spray 05/26/19 13:30 05/27/19 10:00 Flonase - NS 2 spray BID [facility] Administration Labetalol HCl 200 mg 05/26/19 11:00 05/27/19 13:58 Normodyne - PO 200 mg TID [facility] Administration Methylergonovine Maleate 0.2 mg 05/26/19 05:35 Methergine Injection - IM Q4H PRN EXCESSIVE BLEEDING Nifedipine 30 mg 05/26/19 16:30 05/27/19 11:44 Procardia Xl - PO 30 mg DAILY [facility] Administration Ondansetron HCl 4 mg 05/26/19 08:34 05/26/19 13:20 Zofran Injection IVPUSH 4 mg Q6H PRN Administration NAUSEA AND/OR VOMITING Oxycodone HCl 5 mg 05/26/19 05:35 Roxicodone - PO Q4H PRN PAIN LEVEL 4 - 6 Oxycodone HCl 10 mg 05/26/19 05:35 05/27/19 07:42 Roxicodone - PO 10 mg Q4H PRN Administration PAIN LEVEL 7 - 10 Senna/Docusate Sodium 2 tablet 05/28/19 22:00 Pericolace - PO HS PRN CONSTIPATION Simethicone 80 mg 05/26/19 05:35 Mylicon - PO Q4H PRN GAS Witch Mary/Glycerin 1 pad 05/26/19 05:35 Tucks Pads - TP PRN PRN Pain - Topical Selected Entries 05/27/19 05/27/19 05/27/19 03:00 04:00 05:00 Blood Pressure 116/78 108/75 123/86 05/27/19 05/27/19 05/27/19 07:00 08:00 10:16 Blood Pressure 107/74 117/81 160/78 Impression 1. hypocalcemia 2. htn 3. hypokalemia Plan - d/c all fluids - replace calcium - repeat cmp - repeat bp after am meds
[2019-05-27] MEDS: FAMOTIDINE 20 MG/50 ML IVPB 20 MG/50 ML MG IVPB SCH (14:44)
[2019-05-27] MEDS ORDERED: CALCIUM 500MG/VIT-D 200 UNITS COMBO TABLET (FP) PO SCH (14:45)
[2019-05-27] MEDS ORDERED: CALCITRIOL 0.25 MCG CAPSULE (FP) PO ONE (15:15)
[2019-05-27] MEDS: BISACODYL 10 MG SUPP.RECT PR PRN (16:04)
[2019-05-27] MEDS: SIMETHICONE 80 MG TAB.CHEW (FP) PO PRN ×2 (16:04→21:37)
[2019-05-27] MEDS: ACETAMINOPHEN 325 MG TABLET (FP) PO PRN (16:11)
[2019-05-27 16:39] LABS: ALBUMIN 2.2 g/dl (3.4-5.0); BILIRUBIN,TOTAL 0.2 mg/dL (0.2-1); BLOOD UREA NITROGEN 6.8 mg/dL (7-18); CALCIUM 7.1 mg/dL (8.5-10.1); CREATININE 0.7 mg/dL (0.55-1.3); MAGNESIUM 3.8 mg/dL (1.8-2.4); TOT PROT 5.4 g/dl (6.4-8.2)
--- NOTE | 2019-05-27 16:43 | PN ---
Progress Note (short form) - Note Progress Note: Laboratory Tests 05/27/19 15:30 Calcium 7.1 L Magnesium 3.8 H Albumin 2.2 L Addendum - repeat labs reviewed - calcium reviewed - repeat labs in am
[2019-05-27] MEDS: PRENATAL VITAMINS W/ FOLIC ACID TABLET (FP) PO SCH (17:34)
[2019-05-27] MEDS: FERROUS SO4 325 MG TABLET (FP) PO SCH (22:41)
[2019-05-28] MEDS: ACETAMINOPHEN 325 MG TABLET (FP) PO PRN (01:01)
[2019-05-28] MEDS: oxyCODONE HCL 5 MG TABLET PO PRN ×3 (01:02→20:47)
[2019-05-28] MEDS: LABETALOL HCL 200 MG TABLET (FP) PO SCH ×2 (05:42→06:43)
[2019-05-28] MEDS ORDERED: LABETALOL HCL 100 MG TABLET (FP) ONE ×3 (06:40→22:10)
[2019-05-28] MEDS: LABETALOL HCL 200 MG, LABETALOL HCL 100 MG PO SCH ×3 (06:41→22:11)
[2019-05-28] MEDS: ALBUTEROL SO4 0.042% IH SOL 1.25 MG/3 ML VIAL.NEB NEB SCH ×3 (07:40→20:48)
[2019-05-28] MEDS ORDERED: ALBUTEROL SO4 0.083% IH SOL 2.5 MG/3 ML VIAL.NEB. NEB ONE ×2 (07:45→14:15)
--- NOTE | 2019-05-28 08:10 | PN ---
Progress Note (short form) - Note Progress Note: pod 2 s/p c/s PIH , no headache, no blurred vision, no RUQ pain cough improved, no n/v, no dizziness Last Vital Signs Temp Pulse Resp BP Pulse Ox 98.7 F 88 20 152/88 93 L 05/27/19 21:27 05/28/19 05:47 05/28/19 05:47 05/28/19 05:47 05/27/19 08:00 CBC, BMP 05/27/19 06:30 05/27/19 15:30 abdomen soft, no distension, no cva , no RUQ tenderness incision dry, clean ext. 2+ edema DTR normal impression BP improving, cough better passing gas plan ambulate DVT prophylaxis monitor BP cont anti htn meds anemia asymptomatic , will monitor cbc , iron, vit Problem List - Problems (1) with 38 completed weeks gestation Code(s): Z3A.38 - 38 WEEKS GESTATION OF (2) induced hypertension, antepartum Code(s): O13.9 - GESTATIONAL HTN W/O SIGNIFICANT PROTEINURIA, UNSP TRIMESTER (3) Meconium in amniotic fluid Code(s): P96.83 - MECONIUM STAINING (4) Advanced maternal age (AMA) in Code(s): [id number] - (5) Obesity Code(s): E66.9 - OBESITY, UNSPECIFIED Qualifiers: Obesity type: due to excess calories
[2019-05-28 08:36] LABS: BASO % 0.1 % (0-2.0); EOS % 0.6 % (0-4.5); HEMATOCRIT 22.4 % (32.4-45.2); HEMOGLOBIN 7.3 GM/dL (10.7-15.3); LYMPH % 16.2 % (8-40); MCH 27.9 pg (25.7-33.7); MCHC 32.5 g/dl (32.0-36.0); MEAN CELL VOLUME 85.9 fl (80-96); MEAN PLT VOLUME 9.1 fl (7.5-11.1); MONO % 4.7 % (3.8-10.2); NEUT % 78.4 % (42.8-82.8); PLATELET COUNT 235 K/MM3 (134-434); RBC 2.61 M/mm3 (3.60-5.2); WHITE BLOOD COUNT 12.8 K/mm3 (4.0-10.0)
[2019-05-28 09:06] LABS: ALBUMIN 2.1 g/dl (3.4-5.0); BILIRUBIN,TOTAL 0.2 mg/dL (0.2-1); BLOOD UREA NITROGEN 8.3 mg/dL (7-18); CALCIUM 7.9 mg/dL (8.5-10.1); CREATININE 0.6 mg/dL (0.55-1.3); MAGNESIUM 2.3 mg/dL (1.8-2.4); TOT PROT 5.3 g/dl (6.4-8.2)
--- NOTE | 2019-05-28 09:41 | PN ---
Progress Note, Physician History of Present Illness: The patient seen and examined in her room. She is trying to nurse her baby. The patient has two previous pregnancies that were normal, but for the second ., she has elevated BP. She is also reporting that she has an intractable cough for the past 6 months, that were treated by antibiotics by her PCP, but with no significant relief. Her blood pressure remains elevated but significantly better since initiation of medications. - Current Medication List Current Medications: Active Medications Acetaminophen (Tylenol -) 650 mg PO Q4H PRN PRN Reason: FEVER/PAIN Last Admin: 05/28/19 01:01 Dose: 650 mg Albuterol Sulfate (Ventolin 0.042trength) -) 1 amp NEB RTID [facility] Last Admin: 05/28/19 07:40 Dose: 1 amp Benzocaine (Americaine 20% [place] -) 1 spray TP PRN PRN PRN Reason: Pain - Topical Benzocaine (Americaine Ointment -) 1 applic [place] PRN PRN PRN Reason: Pain - Topical Bisacodyl (Dulcolax Suppository -) 10 mg [place] PRN PRN PRN Reason: CONSTIPATION Last Admin: 05/27/19 16:04 Dose: 10 mg Diphenhydramine HCl (Benadryl -) 25 mg PO Q8H PRN PRN Reason: FOR ITCHING Last Admin: 05/27/19 02:30 Dose: 25 mg Enoxaparin Sodium (Lovenox -) 40 mg SQ DAILY [facility] Last Admin: 05/27/19 10:47 Dose: 40 mg Famotidine (Pepcid -) 20 mg PO BID [facility] Last Admin: 05/27/19 21:37 Dose: 20 mg Ferrous Sulfate (Feosol -) 325 mg PO BID [facility] Last Admin: 05/27/19 22:41 Dose: Not Given Fluticasone Propionate (Flonase -) 2 spray NS BID [facility] Last Admin: 05/27/19 21:38 Dose: 2 spray Labetalol HCl 200 mg/ (Labetalol HCl 100 mg) 300 mg PO TID [facility] Last Admin: 05/28/19 06:41 Dose: 300 mg Methylergonovine Maleate (Methergine Injection -) 0.2 mg IM Q4H PRN PRN Reason: EXCESSIVE BLEEDING Nifedipine (Procardia Xl -) 30 mg PO DAILY [facility] Last Admin: 05/27/19 11:44 Dose: 30 mg Ondansetron HCl (Zofran Injection) 4 mg IVPUSH Q6H PRN PRN Reason: NAUSEA AND/OR VOMITING Last Admin: 05/26/19 13:20 Dose: 4 mg Oxycodone HCl (Roxicodone -) 5 mg PO Q4H PRN PRN Reason: PAIN LEVEL 4 - 6 Oxycodone HCl (Roxicodone -) 10 mg PO Q4H PRN PRN Reason: PAIN LEVEL 7 - 10 Last Admin: 05/28/19 01:02 Dose: 10 mg Multivit/Folic Acid/Iron ( Vitamins (Sjr) -) 1 tab PO DAILY [facility] Last Admin: 05/27/19 17:34 Dose: Not Given Senna/Docusate Sodium (Pericolace -) 2 tablet PO HS PRN PRN Reason: CONSTIPATION Simethicone (Mylicon -) 80 mg PO Q4H PRN PRN Reason: GAS Last Admin: 05/27/19 21:37 Dose: 80 mg Witch Mary/Glycerin (Tucks Pads -) 1 pad TP PRN PRN PRN Reason: Pain - Topical - Objective Vital Signs: Vital Signs Temperature 98.7 F 05/27/19 21:27 Pulse Rate 88 05/28/19 05:47 Respiratory Rate 05/28/19 05:47 Blood Pressure 152/88 05/28/19 05:47 O2 Sat by Pulse Oximetry (%) 93 L 05/27/19 08:00 Constitutional: Yes: Anxious Eyes: Yes: EOM Intact Neck: Yes: Trachea Midline Cardiovascular: Yes: Regular Rate and Rhythm, S2, S3 Respiratory: Yes: CTA Bilaterally, Cough, Diminished Gastrointestinal: Yes: Soft, Abdomen, Obese Genitourinary: No: Bladder Distention, CVA Tenderness - Left, CVA Tenderness - Right Extremities: No: Calf Tenderness Edema: Yes Edema: LLE: Trace, RLE: Trace Labs: CBC, BMP 05/28/19 08:00 05/28/19 08:00 INR, PTT INR 0.87 (0.83-1.09) 05/26/19 03:05 Problem List - Problems (1) Chronic cough Code(s): R05 - COUGH (2) Obesity Code(s): E66.9 - OBESITY, UNSPECIFIED Qualifiers: Obesity type: due to excess calories (3) induced hypertension, antepartum Code(s): O13.9 - GESTATIONAL HTN W/O SIGNIFICANT PROTEINURIA, UNSP TRIMESTER Assessment/Plan 38 y/o female with amrkedly elevated Blood pressure on admission at 38 weeks of gestation. The patient underwent LSCS under spinal anesthesia. The patient has been off mag sulfate infusion. Her current regimen include Procardia XL and Labetalol. Blood pressure seems to be slowly improving. Seen by optometric assistant. For outpatient follow-up. We will continue the current regimen. If discharged over the weekend, the patient could follow with us as outpatient within a week. Thank you. Samina Rucker MD
[2019-05-28] MEDS: NIFEdipine E.R. 30 MG TABLET PO SCH (10:00)
[2019-05-28] MEDS: FERROUS SO4 325 MG TABLET (FP) PO SCH ×2 (10:01→22:11)
[2019-05-28] MEDS: PRENATAL VITAMINS W/ FOLIC ACID TABLET (FP) PO SCH (10:01)
[2019-05-28] MEDS: FAMOTIDINE 20 MG TABLET PO SCH ×2 (10:02→22:11)
[2019-05-28] MEDS: FLUTICASONE PROP 0.05% 16 GM NASAL SPRAY NS SCH ×2 (10:06→22:12)
[2019-05-28] MEDS: SIMETHICONE 80 MG TAB.CHEW (FP) PO PRN ×2 (10:06→20:46)
[2019-05-28] MEDS: ENOXAPARIN NA (PORCINE) 40 MG/0.4 ML DISP.SYRIN SQ SCH (10:07)
[2019-05-28] MEDS: BISACODYL 10 MG SUPP.RECT PR PRN (11:56)
[2019-05-28] MEDS ORDERED: NIFEdipine E.R. 30 MG TABLET PO ONE (12:45)
[2019-05-28] MEDS ORDERED: LABETALOL HCL 200 MG TABLET (FP) PO SCH (14:00)
[2019-05-28] MEDS ORDERED: LABETALOL HCL 200 MG TABLET (FP) ONE ×2 (14:06→22:11)
--- NOTE | 2019-05-28 18:37 | PATH ---
Surgical Pathology Report Patient Name: JOSE CARLOS RAY Med. Rec. 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 Specimen(s) Received PLACENTA Clinical History , IUP at 39.3 weeks, severe with PIH, meconium Final Diagnosis PLACENTA, SECTION: 499 G THIRD TRIMESTER PLACENTA WITH TRIVASCULAR UMBILICAL CORD AND PLACENTAL MEMBRANES WITH MECONIUM LADEN MACROPHAGES. Electronically Signed Loraine Davies M.D. Gross Description The specimen is received fresh labeled placenta and is a 499 gram, 20.0 x 20.0 x 2.3 cm. placenta with attached membranes and umbilical cord. The attached membranes are kim green, meconium-stained, translucent with focal opacities and insert marginally. The umbilical cord measures 21 cm. in length and averages 1.1 cm. in diameter. The cord inserts centrally. No true knots or strictures are identified. Cut surface of the umbilical cord reveals 3 vessels. The surface is lucio green, meconium stained with minimal fibrin deposition and appropriate caliber vessels. The maternal surface is red-brown with focal defects. Sectioning reveals red-brown, spongy parenchyma. No lesions are identified. Barrel Filler Head sections are submitted in three cassettes as follows: 1- membrane rolls and umbilical cord; 2-3- full thickness sections of placenta. /05/27/[address] [facility]/05/27/2019
[2019-05-28] MEDS: SENNOSIDES/DOCUSATE COMBO (SENNA PLUS) TABLET (UD) PO PRN (20:46)
[2019-05-29] MEDS ORDERED: LABETALOL HCL 100 MG TABLET (FP) ONE ×2 (06:07→14:19)
[2019-05-29] MEDS ORDERED: LABETALOL HCL 200 MG TABLET (FP) ONE ×2 (06:07→14:20)
[2019-05-29] MEDS: SIMETHICONE 80 MG TAB.CHEW (FP) PO PRN ×2 (06:08→18:07)
[2019-05-29] MEDS: LABETALOL HCL 200 MG, LABETALOL HCL 100 MG PO SCH ×2 (06:08→14:20)
[2019-05-29] MEDS: ACETAMINOPHEN 325 MG TABLET (FP) PO PRN ×2 (06:09→18:07)
[2019-05-29] MEDS: oxyCODONE HCL 5 MG TABLET PO PRN ×2 (06:10→18:07)
[2019-05-29] MEDS: ALBUTEROL SO4 0.042% IH SOL 1.25 MG/3 ML VIAL.NEB NEB SCH ×3 (07:30→20:45)
[2019-05-29 07:43] LABS: BASO % 0.3 % (0-2.0); EOS % 1.4 % (0-4.5); HEMATOCRIT 24.7 % (32.4-45.2); HEMOGLOBIN 8.1 GM/dL (10.7-15.3); LYMPH % 19.7 % (8-40); MCH 28.4 pg (25.7-33.7); MEAN CELL VOLUME 86.1 fl (80-96); MEAN PLT VOLUME 8.9 fl (7.5-11.1); NEUT % 73.6 % (42.8-82.8); PLATELET COUNT 269 K/MM3 (134-434); RBC 2.87 M/mm3 (3.60-5.2); WHITE BLOOD COUNT 9.9 K/mm3 (4.0-10.0)
--- NOTE | 2019-05-29 09:20 | PN ---
Progress Note (short form) - Note Progress Note: PULMONARY Cough almost resolved. No shortness of breath. Vital Signs Period Temp Pulse Resp BP Sys/Reich Pulse Ox Last 24 Hr 97.9 F-98.0 F 79-103 18-18 116-171/71-98 Gen: NAD at rest Heart: RRR Lung: clear to auscultation Abd: soft, nontender Ext: no edema CBC, BMP 05/29/19 06:50 05/28/19 08:00 Active Medications Acetaminophen (Tylenol -) 650 mg PO Q4H PRN PRN Reason: FEVER/PAIN Last Admin: 05/29/19 06:09 Dose: 650 mg Albuterol Sulfate (Ventolin 0.042trength) -) 1 amp NEB RTID [facility] Last Admin: 05/29/19 07:30 Dose: 1 amp Benzocaine (Americaine 20% [place] -) 1 spray TP PRN PRN PRN Reason: Pain - Topical Benzocaine (Americaine Ointment -) 1 applic [place] PRN PRN PRN Reason: Pain - Topical Bisacodyl (Dulcolax Suppository -) 10 mg [place] PRN PRN PRN Reason: CONSTIPATION Last Admin: 05/28/19 11:56 Dose: 10 mg Diphenhydramine HCl (Benadryl -) 25 mg PO Q8H PRN PRN Reason: FOR ITCHING Last Admin: 05/27/19 02:30 Dose: 25 mg Enoxaparin Sodium (Lovenox -) 40 mg SQ DAILY [facility] Last Admin: 05/28/19 10:07 Dose: 40 mg Famotidine (Pepcid -) 20 mg PO BID [facility] Last Admin: 05/28/19 22:11 Dose: 20 mg Ferrous Sulfate (Feosol -) 325 mg PO BID [facility] Last Admin: 05/28/19 22:11 Dose: 325 mg Fluticasone Propionate (Flonase -) 2 spray NS BID [facility] Last Admin: 05/28/19 22:12 Dose: 2 spray Labetalol HCl 200 mg/ (Labetalol HCl 100 mg) 300 mg PO TID [facility] Last Admin: 05/29/19 06:08 Dose: 300 mg Methylergonovine Maleate (Methergine Injection -) 0.2 mg IM Q4H PRN PRN Reason: EXCESSIVE BLEEDING Nifedipine (Procardia Xl -) 30 mg PO DAILY [facility] Last Admin: 05/28/19 10:00 Dose: 30 mg Ondansetron HCl (Zofran Injection) 4 mg IVPUSH Q6H PRN PRN Reason: NAUSEA AND/OR VOMITING Last Admin: 05/26/19 13:20 Dose: 4 mg Oxycodone HCl (Roxicodone -) 5 mg PO Q4H PRN PRN Reason: PAIN LEVEL 4 - 6 Oxycodone HCl (Roxicodone -) 10 mg PO Q4H PRN PRN Reason: PAIN LEVEL 7 - 10 Last Admin: 05/29/19 06:10 Dose: 10 mg Multivit/Folic Acid/Iron ( Vitamins (Sjr) -) 1 tab PO DAILY [facility] Last Admin: 05/28/19 10:01 Dose: 1 tab Senna/Docusate Sodium (Pericolace -) 2 tablet PO HS PRN PRN Reason: CONSTIPATION Last Admin: 05/28/19 20:46 Dose: 2 tablet Simethicone (Mylicon -) 80 mg PO Q4H PRN PRN Reason: GAS Last Admin: 05/29/19 06:08 Dose: 80 mg Witch Mary/Glycerin (Tucks Pads -) 1 pad TP PRN PRN PRN Reason: Pain - Topical A/P s/p POD #3 Induced Hypertension Anemia Cough - cough likely multifactorial, may be from atelectasis from diaphragmatic elevation vs post nasal gtt vs reflux - incentive spirometry, nasal steroids, inhaled bronchodilators and H2 blockers - outpt PFTs to r/o underlying asthma - DVT prophylaxis Problem List - Problems (1) induced hypertension, antepartum Code(s): O13.9 - GESTATIONAL HTN W/O SIGNIFICANT PROTEINURIA, UNSP TRIMESTER (2) with 38 completed weeks gestation Code(s): Z3A.38 - 38 WEEKS GESTATION OF
[2019-05-29] MEDS: FLUTICASONE PROP 0.05% 16 GM NASAL SPRAY NS SCH ×2 (09:37→21:54)
[2019-05-29] MEDS: FERROUS SO4 325 MG TABLET (FP) PO SCH ×2 (09:38→21:52)
[2019-05-29] MEDS: ENOXAPARIN NA (PORCINE) 40 MG/0.4 ML DISP.SYRIN SQ SCH (09:38)
[2019-05-29] MEDS: PRENATAL VITAMINS W/ FOLIC ACID TABLET (FP) PO SCH (09:38)
[2019-05-29] MEDS: NIFEdipine E.R. 30 MG TABLET PO SCH (09:38)
[2019-05-29] MEDS: FAMOTIDINE 20 MG TABLET PO SCH ×2 (09:38→21:52)
--- NOTE | 2019-05-29 11:58 | PN ---
Progress Note (short form) - Note Progress Note: pod 4 , no headache, no blurred vision had BM , passing gas CBC, BMP 05/29/19 06:50 05/28/19 08:00 Last Vital Signs Temp Pulse Resp BP Pulse Ox 97.9 F 100 H 18 126/76 93 L 05/29/19 09:27 05/29/19 09:27 05/29/19 09:27 05/29/19 09:27 05/27/19 08:00 abdomen soft, no distension ,no cva incision dry, clean, healing well, no discharge no calf tenderness ext. DTR normal , 1+ edema impression BP stablizing , cough has improved plan can be d/c home if medically clear follow up office 1 week Problem List - Problems (1) with 38 completed weeks gestation Code(s): Z3A.38 - 38 WEEKS GESTATION OF (2) induced hypertension, antepartum Code(s): O13.9 - GESTATIONAL HTN W/O SIGNIFICANT PROTEINURIA, UNSP TRIMESTER (3) Meconium in amniotic fluid Code(s): P96.83 - MECONIUM STAINING (4) Advanced maternal age (AMA) in Code(s): [id number] - (5) Obesity Code(s): E66.9 - OBESITY, UNSPECIFIED Qualifiers: Obesity type: due to excess calories
--- NOTE | 2019-05-29 21:25 | PN ---
Progress Note (short form) - Note Progress Note: covering dr lori PENA Obesity Current Medications Acetaminophen (Tylenol -) 650 mg PO Q4H PRN PRN Reason: FEVER/PAIN Last Admin: 05/29/19 18:07 Dose: 650 mg Albuterol Sulfate (Ventolin 0.042trength) -) 1 amp NEB RTID [facility] Last Admin: 05/29/19 14:02 Dose: 1 amp Benzocaine (Americaine 20% [place] -) 1 spray TP PRN PRN PRN Reason: Pain - Topical Benzocaine (Americaine Ointment -) 1 applic [place] PRN PRN PRN Reason: Pain - Topical Bisacodyl (Dulcolax Suppository -) 10 mg [place] PRN PRN PRN Reason: CONSTIPATION Last Admin: 05/28/19 11:56 Dose: 10 mg Diphenhydramine HCl (Benadryl -) 25 mg PO Q8H PRN PRN Reason: FOR ITCHING Last Admin: 05/27/19 02:30 Dose: 25 mg Enoxaparin Sodium (Lovenox -) 40 mg SQ DAILY [facility] Last Admin: 05/29/19 09:38 Dose: 40 mg Famotidine (Pepcid -) 20 mg PO BID [facility] Last Admin: 05/29/19 09:38 Dose: 20 mg Ferrous Sulfate (Feosol -) 325 mg PO BID [facility] Last Admin: 05/29/19 09:38 Dose: 325 mg Fluticasone Propionate (Flonase -) 2 spray NS BID [facility] Last Admin: 05/29/19 09:37 Dose: 2 spray Labetalol HCl (Normodyne -) 400 mg PO BID [facility] Methylergonovine Maleate (Methergine Injection -) 0.2 mg IM Q4H PRN PRN Reason: EXCESSIVE BLEEDING Nifedipine (Procardia Xl -) 30 mg PO DAILY [facility] Last Admin: 05/29/19 09:38 Dose: 30 mg Ondansetron HCl (Zofran Injection) 4 mg IVPUSH Q6H PRN PRN Reason: NAUSEA AND/OR VOMITING Last Admin: 05/26/19 13:20 Dose: 4 mg Oxycodone HCl (Roxicodone -) 5 mg PO Q4H PRN PRN Reason: PAIN LEVEL 4 - 6 Oxycodone HCl (Roxicodone -) 10 mg PO Q4H PRN PRN Reason: PAIN LEVEL 7 - 10 Last Admin: 05/29/19 18:07 Dose: 10 mg Multivit/Folic Acid/Iron ( Vitamins (Sjr) -) 1 tab PO DAILY [facility] Last Admin: 05/29/19 09:38 Dose: 1 tab Senna/Docusate Sodium (Pericolace -) 2 tablet PO HS PRN PRN Reason: CONSTIPATION Last Admin: 05/28/19 20:46 Dose: 2 tablet Simethicone (Mylicon -) 80 mg PO Q4H PRN PRN Reason: GAS Last Admin: 05/29/19 18:07 Dose: 80 mg Witch Mary/Glycerin (Tucks Pads -) 1 pad TP PRN PRN PRN Reason: Pain - Topical Last Vital Signs Temp Pulse Resp BP Pulse Ox 97.9 F 95 H 18 141/91 93 L 05/29/19 09:27 05/29/19 18:05 05/29/19 18:05 05/29/19 18:05 05/27/19 08:00 alert in nad no dizziness or malaise Lungs clear Heart reg Ext min edema CBC, BMP 05/29/19 06:50 05/28/19 08:00 IMP- PIH high BP today, not betablocked Anemia Plan- change labetalol to 400 bid more convenient dosaging continue nifedipine daily Rx sent to [facility]
[2019-05-29] MEDS: LABETALOL HCL 200 MG TABLET (FP) PO SCH (21:52)
[2019-05-29] MEDS: SENNOSIDES/DOCUSATE COMBO (SENNA PLUS) TABLET (UD) PO PRN (21:53)
[2019-05-30] MEDS: SIMETHICONE 80 MG TAB.CHEW (FP) PO PRN ×2 (01:48→09:04)
[2019-05-30] MEDS: oxyCODONE HCL 5 MG TABLET PO PRN ×2 (01:48→09:04)
[2019-05-30] MEDS: ACETAMINOPHEN 325 MG TABLET (FP) PO PRN ×2 (01:49→09:04)
[2019-05-30] MEDS: ALBUTEROL SO4 0.042% IH SOL 1.25 MG/3 ML VIAL.NEB NEB SCH ×2 (07:45→14:10)
[2019-05-30 08:52] VITALS: TEMP 98.5
[2019-05-30] MEDS: FERROUS SO4 325 MG TABLET (FP) PO SCH (09:03)
[2019-05-30] MEDS: FAMOTIDINE 20 MG TABLET PO SCH (09:04)
[2019-05-30] MEDS: LABETALOL HCL 200 MG TABLET (FP) PO SCH (09:04)
[2019-05-30] MEDS: PRENATAL VITAMINS W/ FOLIC ACID TABLET (FP) PO SCH (09:04)
[2019-05-30] MEDS: NIFEdipine E.R. 30 MG TABLET PO SCH (09:04)
[2019-05-30] MEDS: FLUTICASONE PROP 0.05% 16 GM NASAL SPRAY NS SCH (09:05)
[2019-05-30] MEDS: ENOXAPARIN NA (PORCINE) 40 MG/0.4 ML DISP.SYRIN SQ SCH (09:05)
[2019-05-30 11:26] VITALS: BP 144/86; PULSE 80
--- NOTE | 2019-05-30 23:46 | PN ---
Progress Note (short form) - Note Progress Note: covering dr lori PENA Obesity Current Medications Acetaminophen (Tylenol -) 650 mg PO Q4H PRN PRN Reason: FEVER/PAIN Last Admin: 05/29/19 18:07 Dose: 650 mg Albuterol Sulfate (Ventolin 0.042trength) -) 1 amp NEB RTID [facility] Last Admin: 05/29/19 14:02 Dose: 1 amp Benzocaine (Americaine 20% [place] -) 1 spray TP PRN PRN PRN Reason: Pain - Topical Benzocaine (Americaine Ointment -) 1 applic [place] PRN PRN PRN Reason: Pain - Topical Bisacodyl (Dulcolax Suppository -) 10 mg [place] PRN PRN PRN Reason: CONSTIPATION Last Admin: 05/28/19 11:56 Dose: 10 mg Diphenhydramine HCl (Benadryl -) 25 mg PO Q8H PRN PRN Reason: FOR ITCHING Last Admin: 05/27/19 02:30 Dose: 25 mg Enoxaparin Sodium (Lovenox -) 40 mg SQ DAILY [facility] Last Admin: 05/29/19 09:38 Dose: 40 mg Famotidine (Pepcid -) 20 mg PO BID [facility] Last Admin: 05/29/19 09:38 Dose: 20 mg Ferrous Sulfate (Feosol -) 325 mg PO BID [facility] Last Admin: 05/29/19 09:38 Dose: 325 mg Fluticasone Propionate (Flonase -) 2 spray NS BID [facility] Last Admin: 05/29/19 09:37 Dose: 2 spray Labetalol HCl (Normodyne -) 400 mg PO BID [facility] Methylergonovine Maleate (Methergine Injection -) 0.2 mg IM Q4H PRN PRN Reason: EXCESSIVE BLEEDING Nifedipine (Procardia Xl -) 30 mg PO DAILY [facility] Last Admin: 05/29/19 09:38 Dose: 30 mg Ondansetron HCl (Zofran Injection) 4 mg IVPUSH Q6H PRN PRN Reason: NAUSEA AND/OR VOMITING Last Admin: 05/26/19 13:20 Dose: 4 mg Oxycodone HCl (Roxicodone -) 5 mg PO Q4H PRN PRN Reason: PAIN LEVEL 4 - 6 Oxycodone HCl (Roxicodone -) 10 mg PO Q4H PRN PRN Reason: PAIN LEVEL 7 - 10 Last Admin: 05/29/19 18:07 Dose: 10 mg Multivit/Folic Acid/Iron ( Vitamins (Sjr) -) 1 tab PO DAILY [facility] Last Admin: 05/29/19 09:38 Dose: 1 tab Senna/Docusate Sodium (Pericolace -) 2 tablet PO HS PRN PRN Reason: CONSTIPATION Last Admin: 05/28/19 20:46 Dose: 2 tablet Simethicone (Mylicon -) 80 mg PO Q4H PRN PRN Reason: GAS Last Admin: 05/29/19 18:07 Dose: 80 mg Witch Mary/Glycerin (Tucks Pads -) 1 pad TP PRN PRN PRN Reason: Pain - Topical Last Vital Signs Temp Pulse Resp BP Pulse Ox 98.5 F 80 18 144/86 93 L 05/30/19 08:52 05/30/19 11:25 05/30/19 11:25 05/30/19 11:25 05/27/19 08:00 CBC, BMP 05/29/19 06:50 05/28/19 08:00 IMP- PIH BP's reviewed with RN on adjusted dose of meds better control no adverse reactions reported Anemia Plan- ok to d/c
--- NOTE | 2019-05-31 12:07 | DS ---
Physical Exam-OPERATING ROOM TECHNOLOGIST Vital Signs: Vital Signs Temperature 98.5 F 05/30/19 08:52 Pulse Rate 80 05/30/19 11:25 Respiratory Rate 18 05/30/19 11:25 Blood Pressure 144/86 05/30/19 11:25 O2 Sat by Pulse Oximetry (%) 93 L 05/27/19 08:00 Constitutional: Yes: Well Nourished, No Distress, Calm Eyes: Yes: WNL, Conjunctiva Clear, EOM Intact HENT: Yes: WNL, Atraumatic, Normocephalic Neck: Yes: WNL, Supple, Trachea Midline Cardiovascular: Yes: WNL, Regular Rate and Rhythm Respiratory: Yes: WNL, Regular, CTA Bilaterally Gastrointestinal: Yes: WNL ...Rectal Exam: Yes: WNL Renal/: Yes: WNL ....Post : Yes: Uterus firm, Uterus non-tender, Slight lochia rubra Breast(s): Yes: WNL Musculoskeletal: Yes: WNL Extremities: Yes: WNL Edema: LLE: 1+, RLE: 1+ Integumentary: Yes: WNL Wound/Incision: Yes: Clean/Dry, Well Approximated, Rad Intact Neurological: Yes: WNL, Alert, Oriented ...Motor Strength: WNL Psychiatric: Yes: WNL, Alert, Oriented Labs: CBC, BMP 05/29/19 06:50 05/28/19 08:00 Delivery - Delivery Section: Primary, Low Flap Transverse Type of Anesthesia: Spinal Episiotomy/Laceration: None EBL (cc): 500 Delivery, Single - Stages of Labor Date of Delivery: 05/26/19 Time of Delivery: 04:59 Time Placenta Delivered: 05:00 Placenta: Yes: Expressed - Condition of Infant Dimension [employer]ar[employer] Supervisor/Operations Representative Present: Yes Name: José Miguel Navarrete Infant Gender: Female Weight: 7 lb 14 oz Position: Right, OT Total Hours ROM (Hrs/Mins): 4H40M - 1 Minute Total Score: 9 5 Minutes Total Score: 9 - [place] Feeding Plan Initial Plan: Elected not to breastfeed exclusively throughout hospitalization Discharge Summary Problems reviewed: Yes Reason For Visit: ADMIT severe PIH, obesity, meconium A.F Procedures: Principal: primary LST c/s Other Procedures: none Hospital Course: severe PIH, txed with MGso4, anti HTN meds Health Concerns: obesity, HTN, anemia Plan of Treatment: iron , vit cont. anti HTN meds follow up with Dr Carlos gift packer 1 week follow up office 1 week Condition: Good - Instructions Diet, Activity, Other Instructions: regular diet , follow up office 1 week, follow up DR Shannon one week if fever, pain , heavy vaginal bleeding, dizziness , headache, blurred vision call md Referrals: Aren Vega MD [Staff Physician] - Andrew Shannon MD [Staff Physician] - Disposition: HOME - Home Medications Comprehensive Discharge Medication List: Ambulatory Orders Vitamins (Sjr) - 1 tab PO DAILY 05/26/19 Ibuprofen [Motrin -] 600 mg PO QID #28 tablet 05/28/19 Oxycodone HCl/Acetaminophen [Percocet 5-325 mg Tablet] 1 tab PO Q6H PRN #20 tablet MDD 4 05/29/19
== END 2019-05-30 13:30 | disposition home or self-care (01) | DRG 998 ==
LOC: JLDR 02:15 → J3W 05-27 08:15
PROVIDERS: ADMIT Obstetrics & Gynecology; ATTEND Obstetrics & Gynecology
DX: O13.4 Gestational [pregnancy-induced] hypertension without significant proteinuria, complicating childbirth (principal); O77.0 Labor and delivery complicated by meconium in amniotic fluid; R05 Cough; O99.02 Anemia complicating childbirth; Z3A.38 38 weeks gestation of pregnancy; Z37.0 Single live birth
CPT/HCPCS: 36415; 36600; 71045-TC-FY; 80048; 80053; 80307; 81003; 82803; 82977; 83010; 83735; 84450; 84460; 84550; 85025; 85032; 85044; 85461; 85610; 85730; 86593; 86850; 86900; 86901; 86999; 87340; 87389; 88307-TC; 94010; 94640; J0131